=== PATIENT | female | born 1990 | race African-American/Black ===

== ENCOUNTER 2016-11-03 08:59 | Emergency (ER) | payer MEDICAID, OTHER ==
[~2016-11-03] VITALS: Ht 160 cm; Wt 90.0 kg
[2016-11-03 09:05] VITALS: BP 136/82; PULSE 16; PULSE 76; RESP 15; TEMP 99.1; O2SAT 97
[2016-11-03] MEDS ORDERED: BUPIVACAINE HCL PF 0.5% 10 ML VIAL INFIL ONE (10:30)
[2016-11-03] MEDS ORDERED: KETOROLAC TROMETHAMINE 60 MG/2 ML (IM) VIAL IM ONE (10:30)
[2016-11-03] MEDS ORDERED: TRAM50TA PO (10:35)
[2016-11-03] MEDS ORDERED: CLIN1CAP5 PO (10:41)
[2016-11-03] MEDS ORDERED: CHLO.12%30 SWISH-SPIT (10:41)
--- NOTE | 2016-11-03 10:42 | PD ---
HPI Chief Complaint: Oral / Dental Pain or Problem Time Seen by Provider: 10:20 Travel History International Travel<30 days: No Contact w/Intl Traveler<30days: No Traveled to known affect area: No History of Present Illness HPI Patient is a 25-year-old female presenting to emergency department for evaluation of a right lower dental abscess. Patient states the pain has been increasing for the last 3 days. She denies any fever or chills, she denies any new dental trauma. Patient states the pain is 8/10 and describes as aching and throbbing. Patient states it's painful to open her mouth or chew on that side. PFSH Past Medical History Medical History: Denies Significant Hx ?: Not LMP: 10/2016 Social History Alcohol Use: No Tobacco Use: No Substance Use: No Allergies-Medications (Allergen,Severity, Reaction): Coded Allergies: No Known Allergies (Unverified , 11/03/16) Review of Systems Except as stated in HPI: all other systems reviewed are Neg HENT: Positive: Dental Difficulties Musculoskeletal: Positive: Pain Physical Exam Narrative GENERAL: Well-nourished, well-developed patient. SKIN: Warm and dry. HEAD: Normocephalic. MOUTH: Mucous membranes moist, 1 cm fluctuant area adjacent to the right lower third molar. No erythema noted. Moderately tender to palpation. First and second molar on the right lower are missing, the third molar is broken at the gumline. EYES: No scleral icterus. No injection or drainage. NECK: Supple, trachea midline. No JVD or lymphadenopathy. CARDIOVASCULAR: Regular rate and rhythm without murmurs, gallops, or rubs. RESPIRATORY: Breath sounds equal bilaterally. No accessory muscle use. GASTROINTESTINAL: Abdomen soft, non-tender, nondistended. MUSCULOSKELETAL: No cyanosis, or edema. BACK: Nontender without obvious deformity. No CVA tenderness. Data Data Last Documented VS Vital Signs Date Time Temp Pulse Resp B/P Pulse Ox O2 Delivery O2 Flow Rate FiO2 11/03/16 09:05 99.1 76 15 136/82 97 Orders Bupivacaine Pf 0.5% Inj (Marcaine Pf 0.5 (11/03/16 10:30) Ketorolac Inj (Toradol Inj) (11/03/16 10:30) MDM Medical Decision Making Medical Screen Exam Complete: Yes Emergency Medical Condition: Yes Interpretation(s) Vital Signs Date Time Temp Pulse Resp B/P Pulse Ox O2 Delivery O2 Flow Rate FiO2 11/03/16 09:05 99.1 76 15 136/82 97 Differential Diagnosis Abscess versus tooth decay versus dental infection versus other Narrative Course Patient is a 25-year-old female presenting to emergency for evaluation of right lower tooth pain that started 3 days ago. Physical examination is consistent with a dental abscess, please see procedure report for I&D. Patient tolerated well, purulent drainage noted from abscess. Patient be placed on antibiotics, she is encouraged to follow-up with a dentist for further evaluation management. Patient is encouraged to return to emergency department for any new or worsening symptoms. She is encouraged to complete full course of antibiotics as directed, even if she begins to feel better. Patient verbalized understanding of instructions. Patient stable for discharge. Procedures Procedure Narrative SKIN: There is an indurated area in the right lower gumline adjacent to the third molar which measures about 1 cm in diameter. It is fluctuant but there is no pointing or drainage. There is a zone of inflammation around it but no lymphangitis. After the risks and benefits were discussed the following procedure was performed: INCISION AND DRAINAGE OF ABSCESS: The area was prepped and was sterilely draped. A subcutaneous wheal of bupivacaine with a total number 1 mL was used to anesthetize the area. The area was properly anesthetized. A number 11 scalpel was used to make a 3 mm incision across the area of the abscess. The abscess was drained an irrigated with normal saline. Yankauer suction was used to avoid patient swallowing purulent drainage. Patient tolerated procedure well. Diagnosis Primary Impression: Dental abscess Referrals: Dentist 3 days Patient Instructions: Dental Abscess (ED), General Instructions Additional Instructions: Follow-up with a dentist in 2-3 days Complete full course of antibiotics as directed Do not drive or operate heavy machinery while taking narcotic pain medication Narcotic pain medication may make you drowsy, ensure adequate childcare if taking this medication Return to emergency department for any new or worsening symptoms Med/Other Pt SpecificInfo: Prescription(s) given Scripts Chlorhexidine Gluconate (Mouth) Liq 0.12% Soln15 Ml SWISH-SPIT BID 7 Days Ref 0 Prov:Christy Hollins 11/03/16 Clindamycin 150 Mg [id number] Mg PO Q8HR 10 Days Ref 0 Prov:Christy Hollins 11/03/16 Tramadol 50 Mg Tab50 Mg PO Q6H PRN (PAIN) #12 TAB Ref 0 Prov:Lisa Hicks MD 11/03/16 Disposition: 01 DISCHARGE HOME Condition: Stable Christy Hollins Nov 03, 2016 10:42
== END 2016-11-03 10:52 | disposition home or self-care (01) ==
LOC: NEPB 08:59
DX: K04.7 Periapical abscess without sinus (principal)
CPT/HCPCS: 41800; 96372; 99282; J1885